=== PATIENT | female | born 1985 | race Caucasian/White ===

== ENCOUNTER 2018-05-08 06:12 | Inpatient (IN) | payer BC ==
[2018-05-08] MEDS ORDERED: OXYTOCIN 10 UNIT/ML 1 ML VIAL IM PRN (06:24)
[2018-05-08] MEDS ORDERED: AMPICILLIN 2,000 MG in SODIUM CHLORIDE 0.9% 100 ML IVPB STA (06:24)
[2018-05-08] MEDS ORDERED: TERBUTALINE 1 MG/ML VIAL SQ PRN (06:24)
[2018-05-08] MEDS ORDERED: CARBOPROST TROMETHAMINE 250 MCG/ML 1 ML AMP IM PRN (06:24)
[2018-05-08] MEDS ORDERED: METHYLERGONOVINE 0.2 MG/ML 1 ML AMP IM PRN (06:24)
[2018-05-08] MEDS ORDERED: LIDOCAINE 1% INJ 10MG/ML (20 ML MDV) SQ PRN (06:24)
[2018-05-08] MEDS ORDERED: OXYTOCIN 20 UNITS/1000 ML NS 1,000 ML IV SCH ×2 (06:30→14:15)
[2018-05-08] MEDS: LACTATED RINGERS 1,000 ML IV SCH ×3 (06:57→10:23)
[2018-05-08 07:43] VITALS: BMI 34.1
[2018-05-08 08:03] LABS: Basophils % (A) 0 %; Eosinophils # (A) 0.1 k/uL (0-0.7); Eosinophils % (A) 1 %; HCT 40.8 % (34.0-46.0); HGB 13.7 gm/dL (11.4-16.0); Lymphocytes # (A) 2.6 k/uL (1.0-4.8); Lymphocytes % (A) 20 %; MCH 30.1 pg (25.0-35.0); MCHC 33.6 g/dL (31.0-37.0); MCV 89.6 fL (80.0-100.0); Mean Platelet Volume 8.5; Monocytes # (A) 0.8 k/uL (0-1.0); Monocytes % (A) 6 %; Neutrophils # (A) 9.2 k/uL (1.3-7.7); Neutrophils % (A) 72 %; Platelet Count 216 k/uL (150-450); RBC 4.55 m/uL (3.80-5.40); RDW 13.2 % (11.5-15.5); WBC 12.8 k/uL (3.8-10.6)
--- NOTE | 2018-05-08 08:32 | P.HPOB ---
History of Present Illness H&P Date: 05/08/18 Chief Complaint: IUP at 39-0/7 weeks, unstable lie This is a very pleasant 33-year-old 2 para 1001 at 39-0/7 weeks with an estimated due date of 1022. Patient was noted to be transverse lie presently 1 week ago with vertex presentation we elected induction given vertex presentation today. Patient denies contractions. She denies vaginal bleeding or loss of fluid. Next On blood work showed a blood type of AB+, rubella immune, hepatitis B surface antigen negative, HIV negative, RPR nonreactive, GBS is positive and treated with ampicillin currently. Next Patient has been receiving routine care with myself since the first trimester. Review of Systems Constitutional: Denies chills, Denies fatigue, Denies fever Ears, nose, mouth and throat: Denies headache Cardiovascular: Reports edema Respiratory: Denies cough, Denies dyspnea Gastrointestinal: Denies constipation, Denies diarrhea Genitourinary: Reports Past Medical History Past Medical History: No Reported History History of Any Multi-Drug Resistant Organisms: None Reported Past Surgical History: Orthopedic Surgery Additional Past Surgical History / Comment(s): Ortho surgery left leg Past Anesthesia/Blood Transfusion Reactions: Postoperative Nausea & Vomiting ( PONV) Past Psychological History: No Psychological Hx Reported Smoking Status: Never smoker Past Alcohol Use History: None Reported Past Drug Use History: None Reported - Past Family History Mother Family Medical History: No Reported History Father Family Medical History: Coronary Artery Disease (CAD) Additional Family Medical History / Comment(s): 2 pulmonary embolisms Medications and Allergies Home Medications Medication Instructions Recorded Confirmed Type Pnv,Calcium 72/Iron/Folic Acid 1 each PO DAILY 09/20/15 05/08/18 History [ Plus Tablet] Allergies Allergy/AdvReac Type Severity Reaction Status Date / Time No Known Allergies Allergy Verified 05/08/18 06:23 Exam Osteopathic Statement: *. No significant issues noted on an osteopathic structural exam other than those noted in the History and Physical/Consult. Vital Signs Temp Pulse Resp BP 05/08/18 07:36 96.2 F L 112 H 15 124/92 Intake and Output 05/07/18 05/08/18 05/08/18 22:59 06:59 14:59 Other: Weight 90.265 kg 90.265 kg - OBG Physical Exam Abdomen: Gravid and appropriate for gestational age Cervix: 4/70/-2, amniotomy performed with copious amounts of clear amniotic fluid noted Uterus: enlarged Results Result Diagrams: 05/08/18 06:15 Abnormal Lab Results - Last 24 Hours (Table) 05/08/18 Range/Units 06:15 WBC 12.8 H (3.8-10.6) k/uL Neutrophils # 9.2 H (1.3-7.7) k/uL Assessment and Plan (1) Term Current Visit: Yes Status: Acute Code(s): Z34.80 - ENCOUNTER FOR SUPRVSN OF NORMAL , UNSP TRIMESTER SNOMED Code(s): 55040096 (2) Positive GBS test Current Visit: Yes Status: Acute Code(s): B95.1 - STREPTOCOCCUS, GROUP B, CAUSING DISEASES [facility] SNOMED Code(s): 3171465798728 Plan: Patient is admitted for induction of labor with Pitocin, amniotomy was performed on admission. Patient does desire epidural once uncomfortable. Antibiotic prophylaxis with ampicillin for group beta strep positive culture. Patient states understanding of the plan today and we anticipate a spontaneous vaginal delivery later this afternoon.
[2018-05-08] MEDS ORDERED: ROPIVACAINE 100 MG, fentaNYL (PF) 200 MCG in SODIUM CHLORIDE 0.9% 76 ML EPIDURAL ONE (10:16)
[2018-05-08] MEDS ORDERED: AMPICILLIN 1,000 MG in SODIUM CHLORIDE 0.9% 50 ML IVPB SCH (10:30)
[2018-05-08] MEDS ORDERED: diphenhydrAMINE 25 MG CAP PO PRN (14:10)
[2018-05-08] MEDS ORDERED: LANOLIN CREAM 5 GM TUBE TOPICAL PRN (14:10)
[2018-05-08] MEDS ORDERED: diphenhydrAMINE 50 MG/ML 1 ML VIAL IVP PRN ×2 (14:10)
[2018-05-08] MEDS ORDERED: diphenhydrAMINE 50 MG CAP PO PRN (14:10)
[2018-05-08] MEDS ORDERED: ACETAMINOPHEN TAB 325 MG TAB PO PRN (14:10)
[2018-05-08] MEDS ORDERED: ZOLPIDEM 5 MG TAB PO PRN (14:10)
[2018-05-08] MEDS ORDERED: WITCH HAZEL 1 EACH MED..PAD TOPICAL PRN (14:10)
[2018-05-08] MEDS ORDERED: BENZOCAINE/MENTHOL SPRAY 1 GM/SPRAY AEROSOL TOPICAL PRN (14:10)
[2018-05-08] MEDS ORDERED: HYDROCORTISONE 2.5% RECTAL CREAM 30 GM TUBE RECTAL PRN (14:10)
[2018-05-08] MEDS ORDERED: SIMETHICONE 80 MG CHEWABLE PO PRN (14:10)
--- NOTE | 2018-05-08 14:13 | P.PROBDLV ---
Vaginal Delivery Note - . Vaginal Delivery Note: This is a very pleasant 33-year-old 2 para 1001 at 39-0/7 weeks that presented for induction of labor this morning. Patient was admitted Pitocin induction of labor was begun. Amniotomy was performed and copious amounts of clear fluid was noted. Patient progressed through labor eventually requesting an epidural for pain relief. Patient progressed to complete began pushing and had a normal spontaneous vaginal delivery of a viable female infant at 1349 weight of 8 lbs. 4 oz. with Apgars of 9 and 9 at one and 5 minutes respectively. Infant did have a loose nuchal 2 which was reduced at the perineum. Patient did sustain a second-degree vaginal laceration during delivery. After a two-minute delayed the umbilical cord was doubly clamped and cut and the was handed off to mom. The placenta was delivered spontaneous spontaneously intact with a three-vessel cord. The second-degree midline vaginal laceration was repaired in the usual fashion with 3-0 Rapide. Afterwards hemostasis was appreciated the uterus was noted to be firm and below the umbilicus. Estimated blood loss 300 mL Patient and infant tolerated delivery well and are resting comfortably.
[2018-05-08] MEDS: IBUPROFEN 600 MG TAB PO PRN ×2 (14:24→19:59)
[2018-05-08] MEDS: SENNOSIDES-DOCUSATE SODIUM 1 EACH TAB PO SCH (19:58)
[2018-05-09] MEDS: IBUPROFEN 600 MG TAB PO PRN ×2 (03:51→11:34)
[2018-05-09 07:53] LABS: Basophils % (A) 0 %; Eosinophils # (A) 0.1 k/uL (0-0.7); Eosinophils % (A) 0 %; HGB 12.4 gm/dL (11.4-16.0); Lymphocytes # (A) 1.9 k/uL (1.0-4.8); Lymphocytes % (A) 15 %; MCH 31.2 pg (25.0-35.0); MCHC 33.6 g/dL (31.0-37.0); MCV 92.9 fL (80.0-100.0); Mean Platelet Volume 7.8; Monocytes # (A) 0.6 k/uL (0-1.0); Monocytes % (A) 5 %; Neutrophils % (A) 79 %; Platelet Count 178 k/uL (150-450); RBC 3.98 m/uL (3.80-5.40); RDW 13.4 % (11.5-15.5); WBC 12.6 k/uL (3.8-10.6)
--- NOTE | 2018-05-09 08:27 | P.DS ---
Providers Date of admission: 05/08/18 06:12 Expected date of discharge: 05/09/18 Attending physician: Shante Alvarez Primary care physician: Cecy Duran - Discharge Diagnosis(es) (1) Term Current Visit: Yes Status: Acute (2) Positive GBS test Current Visit: Yes Status: Acute Hospital Course: This is a very pleasant 33-year-old 2 para 1001 that was admitted to labor and delivery for elective induction of labor on 05/08. Patient patient tolerated labor well did eventually get an epidural progressed to complete and had a normal spontaneous vaginal delivery of a viable male infant, weight of 8 lbs. 4 oz. At 1349. Apgars of 9 and 9 at one and 5 minutes respectively. "mimi" Patient's course has been uneventful. She is ambulating and voiding without difficulty. She states her pain is well-controlled. She is breast- feeding, and states her lochia is moderate at this time. She would like discharge home at 24 hours Plan - Discharge Summary New Discharge Prescriptions: No Action Pnv,Calcium 72/Iron/Folic Acid [ Plus Tablet] 1 each PO DAILY Discharge Medication List Pnv,Calcium 72/Iron/Folic Acid [ Plus Tablet] 1 each PO DAILY 09/20/15 [ History] Follow up Appointment(s)/Referral(s): Shante Alvarez DO [Doctor of Osteopathic Medicine] - 4 Weeks Patient Instructions/Handouts: Vaginal Delivery (DC), Vaginal Delivery (GEN) Discharge Disposition: HOME SELF-CARE
[2018-05-09] MEDS: SENNOSIDES-DOCUSATE SODIUM 1 EACH TAB PO SCH (08:48)
[2018-05-09] MEDS ORDERED: INFLUENZA VACCINE (6 MOS+) 60 MCG/0.5 ML SYRINGE IM ONE (13:54)
[2018-05-09 15:13] VITALS: BP 116/70; PULSE 89; RESP 20; TEMP 98.2
== END 2018-05-09 15:10 | disposition home or self-care (01) | DRG 807 ==
LOC: 4FBP 06:12
PROVIDERS: ADMIT Obstetrics & Gynecology Obstetrics; ATTEND Obstetrics & Gynecology Obstetrics
PROC: 10E0XZZ Delivery of Products of Conception, External Approach (ICD-10-PCS; principal; 2018-05-08)
PROC: 0KQM0ZZ Repair Perineum Muscle, Open Approach (ICD-10-PCS; 2018-05-08)
PROC: 00HU33Z Insertion of Infusion Device into Spinal Canal, Percutaneous Approach (ICD-10-PCS; 2018-05-08)
PROC: 3E0R3BZ Introduction of Anesthetic Agent into Spinal Canal, Percutaneous Approach (ICD-10-PCS; 2018-05-08)
DX: O32.0XX0 Maternal care for unstable lie, not applicable or unspecified (principal); Z37.0 Single live birth; O99.824 Streptococcus B carrier state complicating childbirth; O69.81X0 Labor and delivery complicated by cord around neck, without compression, not applicable or unspecified; O70.1 Second degree perineal laceration during delivery; O99.62 Diseases of the digestive system complicating childbirth; K21.9 Gastro-esophageal reflux disease without esophagitis; Z3A.39 39 weeks gestation of pregnancy; Z82.49 Family history of ischemic heart disease and other diseases of the circulatory system
CPT/HCPCS: 85025; 86850; 86900; 86901; 90471; 90686